=== PATIENT | female | born 1995 | race Native Hawaiian/Other Pacific Islander ===

== ENCOUNTER 2017-10-24 13:13 | Emergency (ER) | payer SELFPAY ==
[2017-10-24 13:19] VITALS: BP 124/77; PULSE 93; RESP 16; TEMP 98; O2SAT 98
--- NOTE | 2017-10-24 15:04 | ED PDOC ---
HPI: Allergic Reaction <Chan Warren - Last Filed: 10/24/17 16:51> Chief Complaint (Provider): "i had a rash" History Per: Patient History/Exam Limitations: no limitations Onset/Duration Of Symptoms: Hrs Current Symptoms Are (Timing): Gone Now Possible Cause: Unknown Associated Symptoms: Skin Rash, Itching, Redness. denies: Swelling, Dyspnea, Trouble Swallowing, Dizziness Home/EMS Treatment: Benadryl, Epi-pen Severity: None Additional Complaint(s): 22 y/o female, hx of seasonal allergies, presents via BLS from [facility] complaining of what seems to be an allergic reaction. Pt reports being in her usual state of health this morning, she was walking when she suddenley developed a rash on her flexor surfaces and cheeks. She also reports mild palpitations but denied SOB or any edema of her face/lips. She is unsure of what may have triggered the reaction. She was given 50mg Benadryl and an Epi injection at [facility]. She reports the rash has since disappeared and only feels "a little shaky now". No other active complaints. <Favio Pittman - Last Filed: 10/24/17 17:08> Time Seen by Provider: 10/24/17 14:36 Chief Complaint (Nursing): Allergic Reaction Past Medical History Vital Signs: Last Vital Signs Temp 98.0 F 10/24/17 13:17 Pulse 93 H 10/24/17 13:17 Resp 16 10/24/17 13:17 BP 124/77 10/24/17 13:17 Pulse Ox 98 10/24/17 15:06 <Chan Warren - Last Filed: 10/24/17 16:51> Vital Signs: Last Vital Signs Temp 98.0 F 10/24/17 13:17 Pulse 93 H 10/24/17 13:17 Resp 16 10/24/17 13:17 BP 124/77 10/24/17 13:17 Pulse Ox 98 10/24/17 13:17 - Family History Family History: States: Unknown Family Hx <Favio Pittman - Last Filed: 10/24/17 17:08> - Home Medications Home Medications: Ambulatory Orders Medication Instructions Recorded Loratadine [Claritin] 10 mg PO DAILY 4 Days tab 01/30/18 Methylprednisolone [Medrol Dose 4 mg PO DAILY #21 mg 10/24/17 Pack (21 tabs)] - Allergies Allergies/Adverse Reactions: Allergies Allergy/AdvReac Type Severity Reaction Status Date / Time pollen extracts Allergy RASH Verified 10/24/17 13:16 Review of Systems ROS Statement: Except As Marked, All Systems Reviewed And Found Negative <Favio Pittman - Last Filed: 10/24/17 17:08> Physical Exam - Reviewed Nursing Documentation Reviewed: Yes Vital Signs Reviewed: Yes - Physical Exam Appears: Positive for: Non-toxic, No Acute Distress Head Exam: Positive for: ATRAUMATIC, NORMOCEPHALIC Skin: Positive for: Warm, Dry. Negative for: Diaphoresis, Pallor, Rash, Cyanosis Eye Exam: Positive for: EOMI, PERRL. Negative for: Conjunctival injection ENT: Positive for: Normal ENT Inspection Neck: Positive for: Normal Cardiovascular/Chest: Positive for: Regular Rate, Rhythm, Tachycardia. Negative for: Chest Non Tender, Murmur Respiratory: Positive for: Normal Breath Sounds. Negative for: Accessory Muscle Use, Crackles, Rales, Rhonchi, Stridor, Wheezing, Respiratory Distress Pulses-Radial (L): 2+ Pulses-Radial (R): 2+ Extremity: Positive for: Normal ROM, Capillary Refill (<2s). Negative for: Tenderness, Pedal Edema, Swelling DTR - Knee (R): 2+ DTR - Knee (L): 2+ Lymphatic: Positive for: Normal Exam. Negative for: Adenopathy Neurologic/Psych: Positive for: Alert, computing consultant II-XII, Oriented. Negative for: Motor/Sensory Deficits <Favio Pittman - Last Filed: 10/24/17 17:08> - ECG O2 Sat by Pulse Oximetry: 98 - Progress ED Course And Treament: s/p Benadryl/Epinephrine in the field Solu-medrol 125mg IVP Pepcid 20mg PO -monitor vitals re-evaluated improved, feels better, vitals stable <Favio Pittman - Last Filed: 10/24/17 17:08> Disposition - Patient ED Disposition Is Patient to be Admitted: No Counseled Patient/Family Regarding: Studies Performed, Diagnosis, Need For Followup, Rx Given - Disposition Disposition: Routine/Home Disposition Time: 16:52 <Chan Warren - Last Filed: 10/24/17 16:51> - Patient ED Disposition Is Patient to be Admitted: No - Disposition Disposition: Routine/Home <Favio Pittman - Last Filed: 10/24/17 17:08> - Clinical Impression Clinical Impression: Allergic reaction - Disposition Referrals: [facility] [Outside] Condition: STABLE Prescriptions: Loratadine [Claritin] 10 mg PO DAILY 4 Days tab Methylprednisolone [Medrol Dose Pack (21 tabs)] 4 mg PO DAILY #21 mg Instructions: Urticaria (ED) Forms: [employer] (Ugandan)
== END 2017-10-24 17:13 | disposition home or self-care (01) ==
LOC: H.ER 13:13
DX: T78.40XA Allergy, unspecified, initial encounter (principal)
CPT/HCPCS: 96374; 99282; J2930